=== PATIENT | female | born 1960 | race Hispanic/Latino ===

== ENCOUNTER 2017-08-09 15:06 | Observation (INO) | payer MEDICAID ==
[~2017-08-09] VITALS: Ht 121.9 cm; Wt 82.2 kg
[~2017-08-09 15:06] MED LIST: ALBU1.252 IH; AMOX-429 PO; BUDE10.2 IH; FLUO10CA21 PO; LEVO500T2 PO; LORA1TAB3 PO; MOME17N NASAL; NAPR-1023 PO; PRED20TA3 PO; RANI300T4 PO; TRAM-355 PO; UMEC62.5 IH
[2017-08-09 16:23] LABS: EOSINOPHILS % (AUTO) 2.3 % (0.0-8.0); HEMATOCRIT 38.3 % (36-48); LYMPHOCYTES % (AUTO) 26.2 % (21.0-51.0); MEAN CORPUSCULAR HEMOGLOBIN 21.7 pg (27.0-33.0); MEAN CORPUSCULAR HGB CONC 32.3 g/dL (32.0-36.0); MEAN CORPUSCULAR VOLUME 67.1 fL (79-99); MONOCYTES % (AUTO) 4.4 % (3.0-13.0); NEUTROPHILS % (AUTO) 66.1 % (40.0-77.0); PLATELET COUNT (AUTO) 303 K/uL (130-400); RED CELL DISTRIBUTION WIDTH 19.8 % (11.0-15.5); WHITE BLOOD COUNT (AUTO) 9.2 K/uL (4.8-10.8)
[2017-08-09 16:33] LABS: CARBON DIOXIDE 30 mmol/L (21-32); CHLORIDE 103 mmol/L (101-111); CREATININE 0.6 mg/dL (0.5-1.5); GLOMERULAR FILTR. RATE CALC 110 mL/min (>60); GLUCOSE,RANDOM 111 mg/dL (70-105); POTASSIUM 3.4 mmol/L (3.5-5.1); SODIUM SERUM 139 mmol/L (136-145); UREA NITROGEN, BLOOD 22 mg/dL (7-18)
[2017-08-09 16:35] LABS: APPEARANCE,URINE Clear (CLEAR); BILIRUBIN,URINE Negative (NEGATIVE); COLOR,URINE Yellow (YELLOW); GLUCOSE, URINE (UA) Negative (NEGATIVE); KETONES,URINE Negative (NEGATIVE); LEUKOCYTE ESTERASE ,URINE Negative (NEGATIVE); NITRATE,URINE Negative (NEGATIVE); OCCULT BLOOD,URINE Negative (NEGATIVE); PH,URINE 5.5 (5.0-8.0); PROTEIN,URINE Negative (NEGATIVE)
[2017-08-09 16:47] LABS: ALANINE AMINOTRANSFERASE 17 U/L (12-78); ALBUMIN 3.2 g/dL (3.5-5.0); ASPARTATE AMINOTRANSFERASE 16 U/L (10-37); BILIRUBIN,TOTAL 0.3 mg/dL (0.2-1.0); CREATINE KINASE MB < 0.5 ng/mL (0.5-3.6); CREATINE KINASE, TOTAL 44 U/L (21-232); TOTAL PROTEIN, SERUM 6.8 g/dL (6.0-8.3)
[2017-08-10] MEDS ORDERED: POTASSIUM CHLORIDE 20 MEQ ERTAB PO PRN (01:30)
[2017-08-10] MEDS ORDERED: GLUCAGON 1MG KIT 1 MG ML IM PRN (01:30)
[2017-08-10] MEDS ORDERED: LIDOCAINE HCL-MPF 1% 2ML VIAL IVP PRN (01:30)
[2017-08-10] MEDS ORDERED: GUAIFENESIN-DM 200/20 MG 10 ML PO PRN (01:30)
[2017-08-10] MEDS ORDERED: HYDRALAZINE HCL 20 MG/ML VIAL IV PRN (01:30)
[2017-08-10] MEDS ORDERED: NITROGLYCERIN 0.4 MG SL TAB SL PRN (01:30)
[2017-08-10] MEDS ORDERED: POTASSIUM CHLORIDE 20MEQ/100ML 100 ML IV PRN (01:30)
[2017-08-10] MEDS ORDERED: ONDANSETRON HCL 4 MG/2 ML VIAL IV PRN (01:30)
[2017-08-10] MEDS ORDERED: POTASSIUM CHLORIDE 10% ELIXIR 20 MEQ/15 ML UDCUP PO PRN (01:30)
[2017-08-10] MEDS ORDERED: ACETAMINOPHEN-CODEINE 300/30MG TAB PO PRN ×2 (01:30)
[2017-08-10] MEDS ORDERED: DiphenhydrAMINE HCL 50 MG/ML VIAL IV PRN (01:30)
[2017-08-10] MEDS ORDERED: LACTULOSE 20 GM/30 ML UDCUP PO PRN (01:30)
[2017-08-10] MEDS ORDERED: DEXTROSE 50%-WATER 50 ML DISP.SYRIN IV PRN (01:30)
[2017-08-10] MEDS ORDERED: LEVOFLOXACIN 500 MG/D5W 100 ML 100 ML ONE (02:17)
[2017-08-10 02:28] LABS: CREATINE KINASE MB < 0.5 ng/mL (0.5-3.6); CREATINE KINASE, TOTAL 73 U/L (21-232); MYOGLOBIN 30 ng/mL (10-92); TROPONIN I < 0.04 ng/mL (0.00-0.06)
[2017-08-10] MEDS ORDERED: LEVOFLOXACIN 500 MG/D5W 100 ML 100 ML IV SCH (02:30)
[2017-08-10 05:16] LABS: HEMATOCRIT 37.3 % (36-48); MEAN CORPUSCULAR HEMOGLOBIN 21.7 pg (27.0-33.0); MEAN CORPUSCULAR HGB CONC 32.3 g/dL (32.0-36.0); MEAN CORPUSCULAR VOLUME 67.2 fL (79-99); PLATELET COUNT (AUTO) 278 K/uL (130-400); RED BLOOD CELL COUNT(AUTO) 5.55 MIL/uL (4.00-5.50); RED CELL DISTRIBUTION WIDTH 19.9 % (11.0-15.5); WHITE BLOOD COUNT (AUTO) 6.6 K/uL (4.8-10.8)
[2017-08-10 05:43] LABS: CREATININE 0.5 mg/dL (0.5-1.5); POTASSIUM 3.6 mmol/L (3.5-5.1)
[2017-08-10] MEDS ORDERED: IPRATROPIUM/ALBUTEROL SULFATE 3 ML SOLUTION IH ONE ×4 (05:56→23:09)
[2017-08-10 05:58] LABS: CREATINE KINASE MB < 0.5 ng/mL (0.5-3.6); CREATINE KINASE, TOTAL 45 U/L (21-232); MYOGLOBIN 23 ng/mL (10-92); TROPONIN I < 0.04 ng/mL (0.00-0.06)
[2017-08-10] MEDS: IPRATROPIUM/ALBUTEROL SULFATE 3 ML SOLUTION IH SCH ×3 (06:00→18:00)
[2017-08-10] MEDS ORDERED: INSULIN HUMULIN R 100 UNIT/ML 3ML SQ SCH (07:30)
[2017-08-10] MEDS ORDERED: ASPIRIN 325 MG TABLET PO SCH (09:00)
[2017-08-10] MEDS ORDERED: METOPROLOL TARTRATE 25 MG TAB PO SCH (09:00)
[2017-08-10] MEDS ORDERED: FAMOTIDINE 20MG TAB 20 MG TAB PO SCH (09:00)
[2017-08-10] MEDS ORDERED: FAMOTIDINE 20MG TAB 20 MG TAB ONE (09:23)
[2017-08-10] MEDS ORDERED: ASPIRIN 325 MG TABLET ONE (09:23)
[2017-08-10] MEDS ORDERED: METOPROLOL TARTRATE 25 MG TAB ONE (09:23)
[2017-08-10] MEDS ORDERED: ACETAMINOPHEN-CODEINE 300/30MG TAB ONE (09:38)
[2017-08-10 10:11] LABS: CREATINE KINASE MB < 0.5 ng/mL (0.5-3.6); CREATINE KINASE, TOTAL 42 U/L (21-232); MYOGLOBIN 25 ng/mL (10-92); TROPONIN I < 0.04 ng/mL (0.00-0.06)
[2017-08-10] MEDS ORDERED: TRAMADOL /APAP 37.5MG/325MG TAB ONE ×2 (10:15→18:15)
[2017-08-10] MEDS ORDERED: TRAMADOL /APAP 37.5MG/325MG TAB PO PRN (10:45)
[2017-08-10] MEDS ORDERED: MAGNESIUM 2GM PREMIX 50ML 50 ML IV SCH (10:45)
[2017-08-10] MEDS ORDERED: MAGNESIUM 2GM PREMIX 50ML 50 ML IV ONE (11:07)
[2017-08-10] MEDS: BUDESONIDE 0.5 MG/2 ML INH IH SCH (18:00)
[2017-08-10 18:18] LABS: CREATINE KINASE MB < 0.5 ng/mL (0.5-3.6); CREATINE KINASE, TOTAL 59 U/L (21-232); MYOGLOBIN 21 ng/mL (10-92); TROPONIN I < 0.04 ng/mL (0.00-0.06)
[2017-08-10] MEDS ORDERED: ACYCLOVIR 200 MG CAPSULE PO SCH (19:00)
[2017-08-10] MEDS ORDERED: FAMOTIDINE/PF 20 MG/2 ML VIAL IV ONE (22:04)
[2017-08-11] MEDS ORDERED: LEVOFLOXACIN 500 MG/D5W 100 ML 100 ML ONE (02:31)
[2017-08-11] MEDS ORDERED: ONDANSETRON HCL 4 MG/2 ML VIAL ONE (04:21)
[2017-08-11 04:22] LABS: HEMATOCRIT 36.3 % (36-48); MEAN CORPUSCULAR HEMOGLOBIN 22.1 pg (27.0-33.0); MEAN CORPUSCULAR HGB CONC 32.9 g/dL (32.0-36.0); MEAN CORPUSCULAR VOLUME 67.2 fL (79-99); NUCLEATED RED BLOOD CELLS 0.1 % (0.0-0.19); PLATELET COUNT (AUTO) 285 K/uL (130-400); RED CELL DISTRIBUTION WIDTH 19.7 % (11.0-15.5)
[2017-08-11 04:31] LABS: CREATININE 0.5 mg/dL (0.5-1.5); POTASSIUM 3.4 mmol/L (3.5-5.1)
[2017-08-11] MEDS: BUDESONIDE 0.5 MG/2 ML INH IH SCH (06:00)
[2017-08-11] MEDS ORDERED: IPRATROPIUM 0.5 MG/2.5 ML INH IH ONE (06:57)
[2017-08-11] MEDS ORDERED: ALBUTEROL SULFATE 0.083% 2.5 MG/3 ML INH IH ONE (06:58)
[2017-08-11] MEDS: IPRATROPIUM/ALBUTEROL SULFATE 3 ML SOLUTION IH SCH ×3 (07:02→12:00)
[2017-08-11] MEDS ORDERED: ASPIRIN 325 MG TABLET ONE (08:42)
[2017-08-11] MEDS ORDERED: FAMOTIDINE 20MG TAB 20 MG TAB ONE (08:42)
[2017-08-11] MEDS ORDERED: LEVOFLOXACIN 500 MG/D5W 100 ML 100 ML IV SCH (09:00)
[2017-08-11] MEDS ORDERED: IPRATROPIUM/ALBUTEROL SULFATE 3 ML SOLUTION IH ONE (11:48)
[2017-08-11 14:50] VITALS: BP 128/69
[2017-08-11] MEDS ORDERED: CHOL500051 PO (15:03)
[2017-08-11] MEDS ORDERED: TIOT4MIS5 IH (15:03)
[2017-08-11 16:33] VITALS: BP 108/65
[2017-08-12] MEDS ORDERED: ENOXAPARIN SODIUM 40 MG/0.4 ML SYRINGE SQ SCH (09:00)
== END 2017-08-11 18:30 | disposition home or self-care (01) ==
LOC: EDH 15:06 → EDHIP 15:07 → 2AH 08-11 14:24
PROVIDERS: ADMIT Internal Medicine; ATTEND Internal Medicine
DX: R55 Syncope and collapse (principal); R07.89 Other chest pain; J44.1 Chronic obstructive pulmonary disease with (acute) exacerbation; G47.33 Obstructive sleep apnea (adult) (pediatric); Q78.0 Osteogenesis imperfecta; E78.00 Pure hypercholesterolemia, unspecified; H70.91 Unspecified mastoiditis, right ear; R20.0 Anesthesia of skin; M81.0 Age-related osteoporosis without current pathological fracture; Z77.22 Contact with and (suspected) exposure to environmental tobacco smoke (acute) (chronic)
CPT/HCPCS: 36415 ×3; 70450; 70544; 70547; 70551; 71045 ×2; 80048 ×2; 80053; 81003; 82550 ×5; 82553 ×5; 82948 ×5; 83735; 83874 ×4; 84443; 84484 ×5; 85025; 85027 ×2; 87088; 93005 ×4; 93306; 94640 ×7; 94664; 99285; G0378 ×51; J1956 ×2; J2405; J3475; J3490

== ENCOUNTER 2017-10-24 12:45 | Emergency (ER) | payer MEDICAID ==
[~2017-10-24 12:45] MED LIST changes: -AMOX-429 PO; +CHOL500051 PO; -LEVO500T2 PO; -PRED20TA3 PO; -RANI300T4 PO; +TIOT4MIS5 IH; -UMEC62.5 IH
== END 2017-10-24 14:20 | disposition home or self-care (01) ==
LOC: EDH 12:45
DX: S62.101A Fracture of unspecified carpal bone, right wrist, initial encounter for closed fracture (principal); Q78.0 Osteogenesis imperfecta; M81.0 Age-related osteoporosis without current pathological fracture; Z98.890 Other specified postprocedural states; W22.8XXA Striking against or struck by other objects, initial encounter; Y93.89 Activity, other specified; Y92.89 Other specified places as the place of occurrence of the external cause; Y99.8 Other external cause status
CPT/HCPCS: 29125; 73110

== ENCOUNTER 2017-12-02 12:52 | Emergency (ER) | payer MEDICAID ==
[2017-12-02] MEDS ORDERED: METHYLPREDNISOLONE SOD SUCC 125MG/2ML VIAL ONE (13:17)
[2017-12-02 13:24] LABS: BASOPHILS % (AUTO) 1.2 % (0.0-5.0); EOSINOPHILS % (AUTO) 2.8 % (0.0-8.0); HEMATOCRIT 39.8 % (36-48); LYMPHOCYTES % (AUTO) 24.9 % (21.0-51.0); MEAN CORPUSCULAR HEMOGLOBIN 21.7 pg (27.0-33.0); MEAN CORPUSCULAR HGB CONC 32.2 g/dL (32.0-36.0); MEAN CORPUSCULAR VOLUME 67.4 fL (79-99); MONOCYTES % (AUTO) 4.6 % (3.0-13.0); NEUTROPHILS % (AUTO) 66.5 % (40.0-77.0); NUCLEATED RED BLOOD CELLS 0.1 % (0.0-0.19); PLATELET COUNT (AUTO) 306 K/uL (130-400); RED CELL DISTRIBUTION WIDTH 19.5 % (11.0-15.5); WHITE BLOOD COUNT (AUTO) 10.1 K/uL (4.8-10.8)
[2017-12-02] MEDS ORDERED: IPRATROPIUM/ALBUTEROL SULFATE 3 ML SOLUTION IH ONE (13:24)
[2017-12-02 13:40] LABS: CREATININE 0.4 mg/dL (0.5-1.5); POTASSIUM 3.5 mmol/L (3.5-5.1)
[2017-12-02 13:45] LABS: ALBUMIN 3.4 g/dL (3.5-5.0); BILIRUBIN,TOTAL 0.3 mg/dL (0.2-1.0); TOTAL PROTEIN, SERUM 7.3 g/dL (6.0-8.3)
== END 2017-12-02 15:24 | disposition home or self-care (01) ==
LOC: EDH 12:52
DX: J44.1 Chronic obstructive pulmonary disease with (acute) exacerbation (principal); M81.0 Age-related osteoporosis without current pathological fracture
CPT/HCPCS: 36415; 71045; 80053; 84484; 85025; 87804 ×2; 93005; 94640; 96374; 99285; J2930

== ENCOUNTER 2018-02-02 15:54 | Emergency (ER) | payer MEDICAID ==
[2018-02-02] MEDS ORDERED: IPRATROPIUM/ALBUTEROL SULFATE 3 ML SOLUTION IH ONE (16:41)
[2018-02-02] MEDS ORDERED: TRAMADOL HCL 50 MG TABLET ONE (17:11)
== END 2018-02-02 19:25 | disposition home or self-care (01) ==
LOC: EDH 15:54
DX: M25.511 Pain in right shoulder (principal); J45.901 Unspecified asthma with (acute) exacerbation; Q78.0 Osteogenesis imperfecta; M81.0 Age-related osteoporosis without current pathological fracture; Z88.6 Allergy status to analgesic agent; Z98.890 Other specified postprocedural states
CPT/HCPCS: 71046; 73030; 94640

== ENCOUNTER 2018-05-14 17:48 | Emergency (ER) | payer MEDICAID ==
[2018-05-14 19:00] LABS: BASOPHILS % (AUTO) 0.8 % (0.0-5.0); EOSINOPHILS % (AUTO) 2.4 % (0.0-8.0); HEMATOCRIT 40.5 % (36-48); LYMPHOCYTES % (AUTO) 18.5 % (21.0-51.0); MEAN CORPUSCULAR HEMOGLOBIN 22.1 pg (27.0-33.0); MEAN CORPUSCULAR VOLUME 69.1 fL (79-99); MONOCYTES % (AUTO) 5.7 % (3.0-13.0); NEUTROPHILS % (AUTO) 72.6 % (40.0-77.0); PLATELET COUNT (AUTO) 260 K/uL (130-400); RED BLOOD CELL COUNT(AUTO) 5.85 MIL/uL (4.00-5.50); RED CELL DISTRIBUTION WIDTH 18.9 % (11.0-15.5); WHITE BLOOD COUNT (AUTO) 11.7 K/uL (4.8-10.8)
[2018-05-14 19:17] LABS: CREATININE 0.5 mg/dL (0.5-1.5); POTASSIUM 3.8 mmol/L (3.5-5.1)
[2018-05-14 19:21] LABS: ALBUMIN 3.5 g/dL (3.5-5.0); BILIRUBIN,TOTAL 0.2 mg/dL (0.2-1.0); TOTAL PROTEIN, SERUM 7.5 g/dL (6.0-8.3)
[2018-05-14] MEDS ORDERED: ONDANSETRON HCL 4 MG/2 ML VIAL ONE (19:24)
[2018-05-14] MEDS ORDERED: MORPHINE SULFATE 2 MG/ML 1ML SYG ONE (19:25)
[2018-05-14] MEDS ORDERED: HYOSCYAMINE SULFATE 0.125 MG TAB.SUBL SL ONE (19:25)
[2018-05-14 19:31] LABS: CREATINE KINASE, TOTAL 71 U/L (21-232); MYOGLOBIN 22 ng/mL (10-92); TROPONIN I < 0.04 ng/mL (0.00-0.06)
[2018-05-14] MEDS ORDERED: FAMOTIDINE/PF 20 MG/2 ML VIAL IV ONE (21:37)
[2018-05-14] MEDS ORDERED: MAGNESIUM HYDROXIDE 30 ML/UDCUP ONE (21:37)
[2018-05-14] MEDS ORDERED: LIDOCAINE HCL 2% VISCOUS 15 ML UDCUP ONE (21:37)
== END 2018-05-14 23:20 | disposition home or self-care (01) ==
LOC: EDH 17:48
DX: R10.13 Epigastric pain (principal); R11.0 Nausea; M81.0 Age-related osteoporosis without current pathological fracture; Z88.6 Allergy status to analgesic agent
CPT/HCPCS: 36415; 76705; 80053; 82550; 83690; 83874; 84484; 85025; 86677; 87804 ×2; 93005; 96365; 96375; 99285; J2405; J3490

== ENCOUNTER 2018-08-31 17:21 | Emergency (ER) | payer MEDICARE ==
[2018-08-31 18:27] LABS: BASOPHILS % (AUTO) 1.3 % (0.0-5.0); HEMATOCRIT 39.1 % (36-48); LYMPHOCYTES % (AUTO) 31.7 % (21.0-51.0); MEAN CORPUSCULAR HEMOGLOBIN 21.7 pg (27.0-33.0); MEAN CORPUSCULAR HGB CONC 31.3 g/dL (32.0-36.0); MEAN CORPUSCULAR VOLUME 69.4 fL (79-99); PLATELET COUNT (AUTO) 314 K/uL (130-400); RED BLOOD CELL COUNT(AUTO) 5.63 MIL/uL (4.00-5.50); RED CELL DISTRIBUTION WIDTH 18.8 % (11.0-15.5)
[2018-08-31 18:31] LABS: CARBON DIOXIDE 30 mmol/L (21-32); CHLORIDE 104 mmol/L (101-111); CREATININE 0.6 mg/dL (0.5-1.5); GLOMERULAR FILTR. RATE CALC 109 mL/min (>60); GLUCOSE,RANDOM 126 mg/dL (70-105); POTASSIUM 3.6 mmol/L (3.5-5.1); SODIUM SERUM 142 mmol/L (136-145); UREA NITROGEN, BLOOD 21 mg/dL (7-18)
[2018-08-31 18:37] LABS: ALANINE AMINOTRANSFERASE 13 U/L (12-78); ALBUMIN 3.3 g/dL (3.5-5.0); ASPARTATE AMINOTRANSFERASE 17 U/L (10-37); BILIRUBIN,DIRECT < 0.1 mg/dL (0.0-0.3); BILIRUBIN,TOTAL 0.2 mg/dL (0.2-1.0); LIPASE 79 U/L (114-286); TOTAL PROTEIN, SERUM 7.4 g/dL (6.0-8.3)
[2018-08-31 19:01] LABS: APPEARANCE,URINE Clear (CLEAR); BILIRUBIN,URINE Negative (NEGATIVE); COLOR,URINE Yellow (YELLOW); GLUCOSE, URINE (UA) Negative (NEGATIVE); KETONES,URINE Negative (NEGATIVE); LEUKOCYTE ESTERASE ,URINE Moderate (NEGATIVE); NITRATE,URINE Negative (NEGATIVE); OCCULT BLOOD,URINE Negative (NEGATIVE); PROTEIN,URINE Negative (NEGATIVE)
[2018-08-31 19:26] LABS: BACTERIA,URINE Few /HPF (None Seen); WBC,URINE 26-50 /HPF (0-1)
[2018-08-31 19:27] LABS: RBC,URINE 0-1 /HPF (0-1)
[2018-08-31] MEDS ORDERED: ALBUTEROL SULFATE 0.083% 2.5 MG/3 ML INH IH ONE (19:49)
== END 2018-08-31 20:18 | disposition home or self-care (01) ==
LOC: EDH 17:21
DX: J20.9 Acute bronchitis, unspecified (principal); N39.0 Urinary tract infection, site not specified; J44.9 Chronic obstructive pulmonary disease, unspecified; M81.0 Age-related osteoporosis without current pathological fracture; Z88.6 Allergy status to analgesic agent; Z98.890 Other specified postprocedural states
CPT/HCPCS: 36415; 71045; 71250; 80048; 80076; 81001; 83690; 85025; 87804; 93005; 94640

== ENCOUNTER 2018-10-15 14:37 | Observation (INO) | payer MEDICARE ==
[~2018-10-15] VITALS: Ht 121.9 cm; Wt 85.9 kg
[2018-10-15] MEDS ORDERED: ACETAMINOPHEN 325 MG TAB ONE (14:44)
[2018-10-15] MEDS ORDERED: ASPIRIN 325 MG TABLET ONE (14:47)
[2018-10-15 14:52] LABS: BASOPHILS % (AUTO) 1.4 % (0.0-5.0); HEMATOCRIT 39.1 % (36-48); LYMPHOCYTES % (AUTO) 20.7 % (21.0-51.0); MEAN CORPUSCULAR HEMOGLOBIN 22.5 pg (27.0-33.0); MEAN CORPUSCULAR HGB CONC 32.3 g/dL (32.0-36.0); MEAN CORPUSCULAR VOLUME 69.7 fL (79-99); MONOCYTES % (AUTO) 5.5 % (3.0-13.0); NEUTROPHILS % (AUTO) 69.4 % (40.0-77.0); PLATELET COUNT (AUTO) 331 K/uL (130-400); RED BLOOD CELL COUNT(AUTO) 5.61 MIL/uL (4.00-5.50); RED CELL DISTRIBUTION WIDTH 19.9 % (11.0-15.5); WHITE BLOOD COUNT (AUTO) 10.9 K/uL (4.8-10.8)
[2018-10-15 15:12] LABS: CREATININE 0.6 mg/dL (0.5-1.5); POTASSIUM 3.7 mmol/L (3.5-5.1)
[2018-10-15 15:15] LABS: INR 0.99 (0.85-1.15); PARTIAL THROMBOPLASTIN TIME 31.5 SEC (26.3-35.5); PROTHROMBIN TIME 10.4 SEC (9.6-11.6)
[2018-10-15 15:23] LABS: ALBUMIN 3.5 g/dL (3.5-5.0); BILIRUBIN,TOTAL 0.3 mg/dL (0.2-1.0); TOTAL PROTEIN, SERUM 7.2 g/dL (6.0-8.3)
[2018-10-15 15:25] LABS: B-TYPE NATRIURETIC PEPTIDE 11 pg/mL (0-100)
[2018-10-15] MEDS ORDERED: NITROGLYCERIN 1GM/1 INCH PACKET TD ONE (16:37)
[2018-10-15] MEDS ORDERED: ONDANSETRON HCL 4 MG/2 ML VIAL ONE (17:28)
[2018-10-15] MEDS ORDERED: MORPHINE SULFATE 2 MG/ML 1ML SYG ONE (17:28)
[2018-10-15] MEDS ORDERED: NITROGLYCERIN 0.4 MG SL TAB SL PRN (18:30)
[2018-10-15] MEDS ORDERED: ONDANSETRON HCL 4 MG/2 ML VIAL IV PRN (18:30)
[2018-10-15] MEDS ORDERED: MORPHINE SULFATE 2 MG/ML 1ML SYG IV PRN (18:30)
[2018-10-15] MEDS ORDERED: ACETAMINOPHEN 325 MG TAB PO PRN (18:30)
[2018-10-15 19:06] LABS: CHOLESTEROL 225 mg/dL (<200); HDL CHOLESTEROL 41 mg/dL (35-85); LDL DIRECT 161 mg/dL (0-99); TRIGLYCERIDES 190 mg/dL (30-200)
[2018-10-15] MEDS: IPRATROPIUM/ALBUTEROL SULFATE 3 ML SOLUTION IH PRN (19:51)
[2018-10-15 20:24] LABS: CREATINE KINASE, TOTAL 82 U/L (21-232); MYOGLOBIN 17 ng/mL (10-92); TROPONIN I < 0.04 ng/mL (0.00-0.06)
[2018-10-15] MEDS ORDERED: METOPROLOL TARTRATE 25 MG TAB PO SCH (21:00)
[2018-10-15] MEDS ORDERED: ATORVASTATIN CALCIUM 20 MG TABLET ONE (21:04)
[2018-10-15] MEDS ORDERED: METOPROLOL TARTRATE 25 MG TAB ONE (21:05)
[2018-10-15 23:30] VITALS: BP 116/63
[2018-10-15] MEDS: ATORVASTATIN CALCIUM 40 MG TABLET PO SCH (23:38)
[2018-10-16 02:29] LABS: CREATINE KINASE, TOTAL 63 U/L (21-232); MYOGLOBIN 20 ng/mL (10-92); TROPONIN I < 0.04 ng/mL (0.00-0.06)
[2018-10-16 04:00] VITALS: BP 102/59
[2018-10-16] MEDS ORDERED: ALBUTEROL SULFATE 0.042% 1.25 MG/3 ML INH IH PRN (04:30)
[2018-10-16] MEDS: IPRATROPIUM/ALBUTEROL SULFATE 3 ML SOLUTION IH PRN ×2 (06:21→18:49)
[2018-10-16 08:00] VITALS: BP_SYST 107; BP_SYST 117; BP_SYST 99; BP_DIAS 46; BP_DIAS 50; BP_DIAS 72
[2018-10-16 08:37] LABS: CREATINE KINASE, TOTAL 58 U/L (21-232); MYOGLOBIN 20 ng/mL (10-92); TROPONIN I < 0.04 ng/mL (0.00-0.06)
[2018-10-16] MEDS: CHOLECALCIFEROL 5000 UNIT PO SCH (09:00)
[2018-10-16] MEDS ORDERED: ASPIRIN 325 MG TABLET PO SCH (09:00)
[2018-10-16] MEDS ORDERED: NAPROXEN 500 MG TABLET PO SCH (09:00)
[2018-10-16] MEDS: LORAZEPAM 1 MG TABLET PO SCH (09:44)
[2018-10-16] MEDS: PANTOPRAZOLE SODIUM 40 MG TABLET.DR PO SCH (09:45)
[2018-10-16] MEDS: FLUOXETINE HCL 10 MG CAPSULE PO SCH (09:45)
[2018-10-16] MEDS: TRAMADOL /APAP 37.5MG/325MG TAB PO PRN ×2 (09:46→20:21)
[2018-10-16] MEDS: ENOXAPARIN SODIUM 30 MG/0.3 ML SQ SCH (09:47)
--- NOTE | 2018-10-16 10:29 | NUR ---
Reported pt c/o left ear tinnitus to Sanchez Forbes NP. Rec'd order to hold naproxen as this can be one of the side effects. Also, pt with orthostatic BP 99/50 when sitting up today, pulses in the 40's overnoc (as reported by DANYELLE Stevenson). Rec'd orders to decrease metoprolol to 12.5 po daily.
[2018-10-16] MEDS ORDERED: ALBUTEROL SULFATE 0.083% 2.5 MG/3 ML INH IH PRN (10:30)
[2018-10-16 12:00] VITALS: BP 117/55
[2018-10-16 16:00] VITALS: BP 136/70
[2018-10-16 19:48] VITALS: BP 135/61
[2018-10-16] MEDS: ATORVASTATIN CALCIUM 40 MG TABLET PO SCH (20:22)
[2018-10-16] MEDS ORDERED: METOPROLOL TARTRATE 25 MG TAB PO SCH ×2 (21:00)
[2018-10-16 23:43] VITALS: BP 122/59
[2018-10-17 03:40] VITALS: BP 115/63
[2018-10-17 04:08] LABS: HEMATOCRIT 34.5 % (36-48); MEAN CORPUSCULAR HEMOGLOBIN 22.4 pg (27.0-33.0); MEAN CORPUSCULAR HGB CONC 32.2 g/dL (32.0-36.0); MEAN CORPUSCULAR VOLUME 69.6 fL (79-99); PLATELET COUNT (AUTO) 289 K/uL (130-400); RED BLOOD CELL COUNT(AUTO) 4.96 MIL/uL (4.00-5.50); RED CELL DISTRIBUTION WIDTH 20.3 % (11.0-15.5); WHITE BLOOD COUNT (AUTO) 8.4 K/uL (4.8-10.8)
[2018-10-17 04:22] LABS: CREATININE 0.5 mg/dL (0.5-1.5)
[2018-10-17] MEDS: IPRATROPIUM/ALBUTEROL SULFATE 3 ML SOLUTION IH PRN (06:04)
[2018-10-17 08:00] VITALS: BP 110/53
--- NOTE | 2018-10-17 08:00 | NUR ---
Uses w/c to get around Addendum: 10/17/18 at 1144 by AMALIA MATSON RN RN Amended: Links added.
[2018-10-17] MEDS ORDERED: ASPIRIN 325 MG TABLET PO SCH (09:00)
[2018-10-17] MEDS: CHOLECALCIFEROL 5000 UNIT PO SCH (09:00)
[2018-10-17] MEDS: PANTOPRAZOLE SODIUM 40 MG TABLET.DR PO SCH (09:20)
[2018-10-17] MEDS: LORAZEPAM 1 MG TABLET PO SCH (09:20)
[2018-10-17] MEDS: FLUOXETINE HCL 10 MG CAPSULE PO SCH (09:20)
[2018-10-17] MEDS: ENOXAPARIN SODIUM 30 MG/0.3 ML SQ SCH (09:28)
[2018-10-17 11:00] VITALS: BP 131/62
[2018-10-17] MEDS: TRAMADOL /APAP 37.5MG/325MG TAB PO PRN (14:55)
== END 2018-10-17 17:00 | disposition home or self-care (01) ==
LOC: EDH 14:37 → EDHIP 18:27 → 4BH 23:08
PROVIDERS: ADMIT Internal Medicine; ATTEND Internal Medicine
DX: R07.89 Other chest pain (principal); E66.01 Morbid (severe) obesity due to excess calories; G47.30 Sleep apnea, unspecified; G89.4 Chronic pain syndrome; I10 Essential (primary) hypertension; I72.2 Aneurysm of renal artery; J44.9 Chronic obstructive pulmonary disease, unspecified; K57.30 Diverticulosis of large intestine without perforation or abscess without bleeding; M81.0 Age-related osteoporosis without current pathological fracture; M94.0 Chondrocostal junction syndrome [Tietze]; Q78.0 Osteogenesis imperfecta; Z68.43 Body mass index [BMI] 50.0-59.9, adult; Z82.0 Family history of epilepsy and other diseases of the nervous system; Z82.5 Family history of asthma and other chronic lower respiratory diseases; Z82.62 Family history of osteoporosis; Z98.51 Tubal ligation status; Z79.899 Other long term (current) drug therapy
CPT/HCPCS: 36415 ×3; 71045; 74176; 80048; 80053; 80061; 82550 ×4; 83036; 83874 ×4; 83880; 84484 ×5; 85025; 85027; 85610; 85730; 93005 ×2; 93306; 94640 ×4; 94664; 96372 ×2; 99284; G0378 ×47; J1650 ×2; J2405

== ENCOUNTER 2019-06-16 12:49 | Emergency (ER) | payer MEDICARE ==
[~2019-06-16 12:49] MED LIST changes: -MOME17N NASAL; -NAPR-1023 PO; -TIOT4MIS5 IH; -TRAM-355 PO
[2019-06-16 14:11] LABS: ALBUMIN 3.6 g/dL (3.5-5.0); BILIRUBIN,TOTAL 0.3 mg/dL (0.2-1.0); CREATININE 0.5 mg/dL (0.5-1.5); POTASSIUM 3.5 mmol/L (3.5-5.1); TOTAL PROTEIN, SERUM 7.7 g/dL (6.0-8.3)
[2019-06-16] MEDS ORDERED: ONDANSETRON HCL 4 MG/2 ML VIAL ONE (14:15)
[2019-06-16] MEDS ORDERED: SODIUM CHLORIDE 0.9% 500ML 500 ML IV ONE (14:16)
[2019-06-16 14:20] LABS: BASOPHILS % (AUTO) 0.6 % (0.0-5.0); EOSINOPHILS % (AUTO) 2.9 % (0.0-8.0); HEMATOCRIT 40.1 % (36-48); LYMPHOCYTES % (AUTO) 31.4 % (21.0-51.0); MEAN CORPUSCULAR HEMOGLOBIN 22.6 pg (27.0-33.0); MEAN CORPUSCULAR HGB CONC 32.3 g/dL (32.0-36.0); MEAN CORPUSCULAR VOLUME 70.1 fL (79-99); MONOCYTES % (AUTO) 8.1 % (3.0-13.0); NUCLEATED RED BLOOD CELLS 0.1 % (0.0-0.19); PLATELET COUNT (AUTO) 287 K/uL (130-400); RED BLOOD CELL COUNT(AUTO) 5.73 MIL/uL (4.00-5.50); WHITE BLOOD COUNT (AUTO) 8.5 K/uL (4.8-10.8)
[2019-06-16] MEDS ORDERED: IPRATROPIUM/ALBUTEROL SULFATE 3 ML SOLUTION IH ONE (14:26)
[2019-06-16 14:27] LABS: INR 0.98 (0.85-1.15); PARTIAL THROMBOPLASTIN TIME 29.6 SEC (26.3-35.5); PROTHROMBIN TIME 10.3 SEC (9.6-11.6)
[2019-06-16 14:49] LABS: B-TYPE NATRIURETIC PEPTIDE 13 pg/mL (0-100)
[2019-06-16 15:09] LABS: RAPID GROUP A STREP NEGATIVE (NEGATIVE)
[2019-06-16] MEDS ORDERED: IOHEXOL-350 75 ML VIAL IV ONE (16:32)
== END 2019-06-16 17:42 | disposition home or self-care (01) ==
LOC: EDH 12:49
DX: Q78.0 Osteogenesis imperfecta (principal); J44.9 Chronic obstructive pulmonary disease, unspecified; M81.0 Age-related osteoporosis without current pathological fracture
CPT/HCPCS: 36415; 70450; 71045; 71275; 80053; 82550; 83880; 84484 ×2; 85025; 85610; 85730; 87804 ×2; 87880; 93005 ×2; 94640; 96374; 99285; J2405; J7040; Q9967

== ENCOUNTER 2019-09-19 18:16 | Emergency (ER) | payer MEDICARE ==
[~2019-09-19 18:16] MED LIST changes: -FLUO10CA21 PO; +FLUO10CA22 PO; +OLME1TAB82 PO; +PANT40TA PO; +TRAM-355 PO
[2019-09-19 19:26] LABS: BASOPHILS % (AUTO) 0.9 % (0.0-5.0); EOSINOPHILS % (AUTO) 2.3 % (0.0-8.0); LYMPHOCYTES % (AUTO) 31.3 % (21.0-51.0); MEAN CORPUSCULAR HEMOGLOBIN 21.8 pg (27.0-33.0); MEAN CORPUSCULAR HGB CONC 30.8 g/dL (32.0-36.0); MEAN CORPUSCULAR VOLUME 70.8 fL (79-99); MONOCYTES % (AUTO) 7.1 % (3.0-13.0); NEUTROPHILS % (AUTO) 58.1 % (40.0-77.0); PLATELET COUNT (AUTO) 291 K/uL (130-400); RED BLOOD CELL COUNT(AUTO) 5.51 MIL/uL (4.00-5.50); RED CELL DISTRIBUTION WIDTH 19.8 % (11.0-15.5); WHITE BLOOD COUNT (AUTO) 9.1 K/uL (4.8-10.8)
[2019-09-19 19:41] LABS: CREATININE 0.6 mg/dL (0.5-1.5); POTASSIUM 3.5 mmol/L (3.5-5.1)
[2019-09-19 19:46] LABS: ALBUMIN 3.3 g/dL (3.5-5.0); BILIRUBIN,TOTAL 0.1 mg/dL (0.2-1.0); TOTAL PROTEIN, SERUM 7.4 g/dL (6.0-8.3)
[2019-09-19 20:52] LABS: APPEARANCE,URINE Clear (CLEAR); BILIRUBIN,URINE Negative (NEGATIVE); COLOR,URINE Yellow (YELLOW); GLUCOSE, URINE (UA) Negative (NEGATIVE); KETONES,URINE Negative (NEGATIVE); LEUKOCYTE ESTERASE ,URINE Trace (NEGATIVE); NITRATE,URINE Negative (NEGATIVE); OCCULT BLOOD,URINE Negative (NEGATIVE); PROTEIN,URINE Negative (NEGATIVE); UROBILINOGEN,URINE 0.2 mg/dL (0.2-1.0)
[2019-09-19 21:16] LABS: BACTERIA,URINE Moderate /HPF (None Seen); RBC,URINE 0-1 /HPF (0-1); SQUAMOUS EPITHELIAL CELL,UR 0-2 /HPF (0-2)
== END 2019-09-19 22:49 | disposition home or self-care (01) ==
LOC: EDH 18:16
DX: J06.9 Acute upper respiratory infection, unspecified (principal); R07.89 Other chest pain; Q78.0 Osteogenesis imperfecta; J44.9 Chronic obstructive pulmonary disease, unspecified; Z98.890 Other specified postprocedural states
CPT/HCPCS: 36415; 71101; 80053; 81001; 85025; 87804

== ENCOUNTER 2020-06-23 09:37 | Observation (INO) | payer MEDICARE ==
[~2020-06-23] VITALS: Ht 121.9 cm; Wt 83.2 kg
[~2020-06-23 09:37] MED LIST changes: -FLUO10CA22 PO; +FLUO10CA23 PO; +OLME-7 PO; -OLME1TAB82 PO
[2020-06-23] MEDS ORDERED: ASPIRIN 325 MG TABLET ONE (09:44)
[2020-06-23 09:57] LABS: BASOPHILS % (AUTO) 0.9 % (0.0-5.0); EOSINOPHILS % (AUTO) 2.4 % (0.0-8.0); LYMPHOCYTES % (AUTO) 33.8 % (21.0-51.0); MEAN CORPUSCULAR HEMOGLOBIN 23.4 pg (27.0-33.0); MEAN CORPUSCULAR HGB CONC 31.6 g/dL (32.0-36.0); MEAN CORPUSCULAR VOLUME 73.9 fL (79-99); MONOCYTES % (AUTO) 6.5 % (3.0-13.0); NEUTROPHILS % (AUTO) 55.5 % (40.0-77.0); PLATELET COUNT (AUTO) 357 K/uL (130-400); RED BLOOD CELL COUNT(AUTO) 5.95 MIL/uL (4.00-5.50); RED CELL DISTRIBUTION WIDTH 20.4 % (11.0-15.5)
[2020-06-23 10:08] LABS: CREATININE 0.6 mg/dL (0.5-1.5); POTASSIUM 3.5 mmol/L (3.5-5.1)
[2020-06-23 10:13] LABS: ALBUMIN 3.3 g/dL (3.5-5.0); BILIRUBIN,TOTAL 0.3 mg/dL (0.2-1.0); TOTAL PROTEIN, SERUM 7.4 g/dL (6.0-8.3)
[2020-06-23 10:39] LABS: INR 0.98 (0.85-1.15); PARTIAL THROMBOPLASTIN TIME 29.2 SEC (26.3-35.5); PROTHROMBIN TIME 10.6 SEC (9.6-11.6)
[2020-06-23 12:25] LABS: APPEARANCE,URINE Clear (CLEAR); BILIRUBIN,URINE Negative (NEGATIVE); COLOR,URINE Yellow (YELLOW); GLUCOSE, URINE (UA) Negative (NEGATIVE); KETONES,URINE Negative (NEGATIVE); LEUKOCYTE ESTERASE ,URINE Trace (NEGATIVE); NITRATE,URINE Negative (NEGATIVE); OCCULT BLOOD,URINE Negative (NEGATIVE); PH,URINE 5.5 (5.0-8.0); PROTEIN,URINE Negative (NEGATIVE); UROBILINOGEN,URINE 0.2 mg/dL (0.2-1.0)
[2020-06-23 12:55] LABS: BACTERIA,URINE Rare /HPF (None Seen); RBC,URINE 0-1 /HPF (0-1); SQUAMOUS EPITHELIAL CELL,UR Rare /HPF (0-2)
[2020-06-23] MEDS ORDERED: ONDANSETRON HCL 4 MG/2 ML VIAL ONE (13:32)
[2020-06-23] MEDS ORDERED: NITROGLYCERIN 1GM/1 INCH PACKET TD ONE (13:32)
[2020-06-23] MEDS ORDERED: MORPHINE SULFATE 2 MG/ML 1ML SYG ONE (13:33)
[2020-06-23] MEDS ORDERED: ACETAMINOPHEN 325 MG TAB PO PRN (14:30)
[2020-06-23] MEDS: CEFTRIAXONE SODIUM 1 GM IVP SCH (14:30)
[2020-06-23] MEDS ORDERED: CEFTRIAXONE SODIUM 1 GM ONE (15:01)
[2020-06-23 15:41] LABS: CREATINE KINASE, TOTAL 32 U/L (21-232); MYOGLOBIN 19 ng/mL (10-92); TROPONIN I < 0.04 ng/mL (0.00-0.06)
[2020-06-23 18:49] VITALS: BP 114/53
[2020-06-23] MEDS: ATORVASTATIN CALCIUM 20 MG TABLET PO SCH (19:41)
[2020-06-23] MEDS: FAMOTIDINE 20MG TAB 20 MG TAB PO SCH (19:41)
[2020-06-23 20:00] VITALS: BP 95/44
[2020-06-23] MEDS: METOPROLOL TARTRATE 25 MG TAB PO SCH (20:28)
[2020-06-23] MEDS: MORPHINE SULFATE 2 MG/ML 1ML SYG IV PRN (21:22)
[2020-06-23 23:17] LABS: CREATINE KINASE, TOTAL 31 U/L (21-232); MYOGLOBIN 16 ng/mL (10-92); TROPONIN I < 0.04 ng/mL (0.00-0.06)
[2020-06-23 23:42] VITALS: BP 110/58
[2020-06-24 03:43] VITALS: BP 110/58
[2020-06-24 05:47] LABS: BASOPHILS % (AUTO) 0.9 % (0.0-5.0); EOSINOPHILS % (AUTO) 2.5 % (0.0-8.0); HEMATOCRIT 41.9 % (36-48); LYMPHOCYTES % (AUTO) 30.6 % (21.0-51.0); MEAN CORPUSCULAR HEMOGLOBIN 23.2 pg (27.0-33.0); MEAN CORPUSCULAR HGB CONC 30.8 g/dL (32.0-36.0); MEAN CORPUSCULAR VOLUME 75.5 fL (79-99); MONOCYTES % (AUTO) 6.5 % (3.0-13.0); NEUTROPHILS % (AUTO) 58.8 % (40.0-77.0); PLATELET COUNT (AUTO) 327 K/uL (130-400); RED BLOOD CELL COUNT(AUTO) 5.55 MIL/uL (4.00-5.50); RED CELL DISTRIBUTION WIDTH 20.5 % (11.0-15.5); WHITE BLOOD COUNT (AUTO) 10.1 K/uL (4.8-10.8)
[2020-06-24 05:52] LABS: HEMOGLOBIN A1C 6.3 % (4.0-6.0)
[2020-06-24 06:05] LABS: BILIRUBIN,TOTAL 0.2 mg/dL (0.2-1.0); CREATININE 0.6 mg/dL (0.5-1.5); POTASSIUM 4.2 mmol/L (3.5-5.1); THYROID STIMULATING HORMONE 1.26 uIU/mL (0.36-3.74); TOTAL PROTEIN, SERUM 6.6 g/dL (6.0-8.3)
[2020-06-24 06:36] LABS: CREATINE KINASE, TOTAL 30 U/L (21-232); MYOGLOBIN 21 ng/mL (10-92); TROPONIN I < 0.04 ng/mL (0.00-0.06)
[2020-06-24 08:00] VITALS: BP 117/59
[2020-06-24] MEDS: FAMOTIDINE 20MG TAB 20 MG TAB PO SCH ×2 (08:42→21:06)
[2020-06-24] MEDS: ASPIRIN 81MG TAB.CHEW PO SCH (08:42)
[2020-06-24] MEDS: ENOXAPARIN SODIUM 30 MG/0.3 ML SQ SCH (08:42)
[2020-06-24] MEDS: MORPHINE SULFATE 2 MG/ML 1ML SYG IV PRN ×2 (08:43→13:40)
[2020-06-24] MEDS: PANTOPRAZOLE SODIUM 40 MG TABLET.DR PO SCH ×2 (08:54→16:53)
[2020-06-24] MEDS ORDERED: ALBUTEROL SULFATE 0.042% 1.25 MG/3 ML INH IH PRN (09:00)
[2020-06-24] MEDS: METOPROLOL TARTRATE 25 MG TAB PO SCH ×2 (09:00→21:06)
--- NOTE | 2020-06-24 11:00 | NUR ---
MET W PATIENT AT BEDSIDE FOR DC PLANNING PATIENT KNOWN TO THIS CM FORM LAST ADMIT, LIVES WITH SON WHO IS ALSO WHEELCHAIR BOUND; THEY SHARE PROVIDER, YAW, WHO CAN TRANSPORT, BUT MAY ALSO BE HER BROTHER ROGERIO ON FACE SHEET. STATES THAT SHE AND HER SON USED TO LIVE WITH HER PARENTS, BUT BOTH THIS SPRING. STATES HOME IS EQUIPPED AND SAFE, SHE HAS W/CHAIR, SHOWER CHAIR, RAMP, OXGYEN, NEBULIZER, INHALER, NO SLEEP STUDY BUT IT IS PENDING WITH MYLES RODRÍGUEZ, STATES SEES YANNI EMRCADO ABOUT EVERY MONTH AND DCP WILL BE TO HOME. CAN GET EASILY IN AND OUT OF A VEHICLE WITH ASSISTANCE. CM TO FOLLOW Addendum: 06/24/20 at 1813 by CARLOS ALBERTO VELASCO RN CM Amended: Links added.
[2020-06-24 11:40] VITALS: BP 123/61
[2020-06-24] MEDS: FLUTICASONE/VILANTEROL 1 EACH BLST.W.DEV IH SCH (13:38)
[2020-06-24] MEDS: CEFTRIAXONE SODIUM 1 GM IVP SCH (13:38)
[2020-06-24] MEDS: FLUOXETINE HCL 10 MG CAPSULE PO SCH (13:38)
[2020-06-24 15:55] VITALS: BP 126/64
[2020-06-24] MEDS ORDERED: IOHEXOL-350 75 ML VIAL IV ONE (15:56)
[2020-06-24 19:31] VITALS: BP 133/76
[2020-06-24] MEDS: ATORVASTATIN CALCIUM 20 MG TABLET PO SCH (21:06)
[2020-06-24] MEDS: FUROSEMIDE 10 MG/ML 2ML VIAL IV SCH (21:07)
[2020-06-24 23:48] VITALS: BP 143/58
[2020-06-25 04:00] VITALS: BP 130/62
[2020-06-25 05:33] LABS: BASOPHILS % (AUTO) 0.8 % (0.0-5.0); EOSINOPHILS % (AUTO) 1.8 % (0.0-8.0); HEMATOCRIT 42.3 % (36-48); LYMPHOCYTES % (AUTO) 22.7 % (21.0-51.0); MEAN CORPUSCULAR HEMOGLOBIN 23.5 pg (27.0-33.0); MEAN CORPUSCULAR HGB CONC 31.4 g/dL (32.0-36.0); MEAN CORPUSCULAR VOLUME 74.6 fL (79-99); MONOCYTES % (AUTO) 7.6 % (3.0-13.0); NEUTROPHILS % (AUTO) 66.5 % (40.0-77.0); PLATELET COUNT (AUTO) 323 K/uL (130-400); RED BLOOD CELL COUNT(AUTO) 5.67 MIL/uL (4.00-5.50); RED CELL DISTRIBUTION WIDTH 20.2 % (11.0-15.5); WHITE BLOOD COUNT (AUTO) 10.3 K/uL (4.8-10.8)
[2020-06-25 05:50] LABS: CREATININE 0.6 mg/dL (0.5-1.5); POTASSIUM 3.6 mmol/L (3.5-5.1)
[2020-06-25] MEDS: PANTOPRAZOLE SODIUM 40 MG TABLET.DR PO SCH (07:18)
[2020-06-25 08:00] VITALS: BP 133/53
[2020-06-25] MEDS: FLUOXETINE HCL 10 MG CAPSULE PO SCH (08:04)
[2020-06-25] MEDS: FAMOTIDINE 20MG TAB 20 MG TAB PO SCH (08:04)
[2020-06-25] MEDS: ASPIRIN 81MG TAB.CHEW PO SCH (08:04)
[2020-06-25] MEDS: FUROSEMIDE 10 MG/ML 2ML VIAL IV SCH ×2 (08:04→08:07)
[2020-06-25] MEDS: ENOXAPARIN SODIUM 30 MG/0.3 ML SQ SCH (08:05)
[2020-06-25] MEDS: FLUTICASONE/VILANTEROL 1 EACH BLST.W.DEV IH SCH (08:06)
[2020-06-25] MEDS: METOPROLOL TARTRATE 25 MG TAB PO SCH (08:08)
[2020-06-25] MEDS ORDERED: POTASSIUM CHLORIDE 20 MEQ ERTAB PO SCH (09:15)
[2020-06-25 12:00] VITALS: BP 120/68
[2020-06-25] MEDS: CEFTRIAXONE SODIUM 1 GM IVP SCH (14:46)
--- NOTE | 2020-06-25 15:30 | NUR ---
RECEIVED REPORT FROM VERNELL PATEL PLAN FOR DC HOME THIS AFTERNOON
--- NOTE | 2020-06-25 15:41 | NUR ---
DISCHARGE DC INSTRUCTIONS GIVEN TO PATIENT, VERBALIZES UNDERSTANDING. PIV REMOVED CATH TIP INTACT TELE PACK REMOVED. ALL QUESTIONS ANSWERED ALL BELONGINGS GATHERED. AWAITING RIDE.
== END 2020-06-25 16:00 | disposition home or self-care (01) ==
LOC: EDH 09:37 → EDHIP 14:24 → 4AH 18:25
PROVIDERS: ADMIT Hospitalist; ATTEND Hospitalist
DX: R07.89 Other chest pain (principal); Z20.828 Contact with and (suspected) exposure to other viral communicable diseases; J44.9 Chronic obstructive pulmonary disease, unspecified; Q78.0 Osteogenesis imperfecta; M85.89 Other specified disorders of bone density and structure, multiple sites; G47.33 Obstructive sleep apnea (adult) (pediatric); I72.2 Aneurysm of renal artery; E66.01 Morbid (severe) obesity due to excess calories; M81.0 Age-related osteoporosis without current pathological fracture; E66.2 Morbid (severe) obesity with alveolar hypoventilation; E78.5 Hyperlipidemia, unspecified; F41.9 Anxiety disorder, unspecified; Z99.81 Dependence on supplemental oxygen; Z79.51 Long term (current) use of inhaled steroids; Z79.899 Other long term (current) drug therapy; Z68.43 Body mass index [BMI] 50.0-59.9, adult
CPT/HCPCS: 36415 ×3; 71045; 71275; 80048; 80053 ×2; 80061; 81001; 82550 ×4; 83036; 83874 ×3; 83880; 84145; 84443; 84484 ×4; 85025 ×3; 85378; 85610; 85730; 87426; 93005 ×3; 93306; 93356; 93970; 94664; 96372 ×2; 96374; 96375; 96376 ×2; 99285; G0378 ×49; J0696 ×3; J1650 ×2; J1940 ×2; J2405; Q9967

== ENCOUNTER 2022-05-06 17:46 | Emergency (ER) | payer MEDICARE ==
[~2022-05-06] VITALS: Ht 121.9 cm; Wt 79.4 kg
[~2022-05-06 17:46] MED LIST changes: -FLUO10CA23 PO; +FLUO10CA24 PO
[2022-05-06 17:54] VITALS: BP 183/86
[2022-05-06] MEDS ORDERED: TRAMADOL HCL 50 MG TABLET PO ONE (18:30)
[2022-05-06] MEDS ORDERED: ACETAMINOPHEN 500 MG TABLET PO ONE (18:30)
[2022-05-06] MEDS ORDERED: ACET-2247 PO (18:43)
== END 2022-05-06 19:21 | disposition home or self-care (01) ==
LOC: EDH 17:46
DX: M25.551 Pain in right hip (principal); M25.552 Pain in left hip; Z79.899 Other long term (current) drug therapy
CPT/HCPCS: 73522

== ENCOUNTER 2023-07-27 13:32 | Emergency (ER) | payer MEDICARE ==
[~2023-07-27] VITALS: Ht 121.9 cm; Wt 81.6 kg
[~2023-07-27 13:32] MED LIST changes: +ACET-2247 PO
[2023-07-27 13:56] LABS: BASOPHILS # (AUTO) 0.09 K/uL (0.00-0.20); EOSINOPHILS # (AUTO) 0.22 K/uL (0.00-0.70); EOSINOPHILS % (AUTO) 2.4 % (0.0-8.0); HEMATOCRIT 40.3 % (36-48); IMMATURE GRANULOCYTE ABSOLUTE 0.06 K/uL (0-1); LYMPHOCYTES # (AUTO) 2.4 K/uL (1.0-4.8); LYMPHOCYTES % (AUTO) 26.2 % (21.0-51.0); MEAN CORPUSCULAR HEMOGLOBIN 23.3 pg (27.0-33.0); MEAN CORPUSCULAR HGB CONC 31.8 g/dL (32.0-36.0); MEAN CORPUSCULAR VOLUME 73.3 fL (79-99); MONOCYTES # (AUTO) 0.6 K/uL (0.1-1.0); MONOCYTES % (AUTO) 6.5 % (3.0-13.0); NEUTROPHILS # (AUTO) 5.7 K/uL (1.8-7.7); NEUTROPHILS % (AUTO) 63.2 % (40.0-77.0); PLATELET COUNT (AUTO) 328 K/uL (130-400); RED CELL DISTRIBUTION WIDTH 18.4 % (11.0-15.5)
[2023-07-27 13:58] LABS: ADD UA MICROSCOPIC YES; APPEARANCE,URINE CLEAR (CLEAR); BILIRUBIN,URINE NEGATIVE (NEGATIVE); COLOR,URINE LIGHT-YELLOW (YELLOW); GLUCOSE, URINE (UA) NEGATIVE (NEGATIVE); KETONES,URINE NEGATIVE (NEGATIVE); LEUKOCYTE ESTERASE ,URINE NEGATIVE Leu/uL (NEGATIVE); NITRATE,URINE NEGATIVE (NEGATIVE); PH,URINE 7.5 (5.0-8.0); PROTEIN,URINE NEGATIVE (NEGATIVE); UROBILINOGEN,URINE 0.2 mg/dL (0.2-1.0)
[2023-07-27 13:59] LABS: MUCUS,URINE RARE LPF (None Seen); SQUAMOUS EPITHELIAL CELL,UR RARE /HPF (0-2); WBC,URINE 0-1 /HPF (0-1)
[2023-07-27 14:04] LABS: CREATININE 0.5 mg/dL (0.5-1.5)
[2023-07-27 14:09] LABS: ALBUMIN 3.7 g/dL (3.5-5.0); BILIRUBIN,TOTAL 0.4 mg/dL (0.2-1.0); TOTAL PROTEIN, SERUM 7.2 g/dL (6.0-8.3)
[2023-07-27] MEDS ORDERED: ONDANSETRON 4MG INJ IVP ONE (15:00)
[2023-07-27] MEDS ORDERED: FAMOTIDINE 20MG VIAL IV ONE (15:00)
[2023-07-27] MEDS ORDERED: PANTOPRAZOLE 40 MG/VIAL IVP ONE (15:00)
[2023-07-27] MEDS ORDERED: FAMO-136 PO (17:17)
[2023-07-27] MEDS ORDERED: PANT40TA55 PO (17:17)
[2023-07-27 17:26] VITALS: BP 127/53; PULSE 74; RESP 16; O2SAT 97
== END 2023-07-27 17:29 | disposition home or self-care (01) ==
LOC: EDH 13:32
DX: K29.70 Gastritis, unspecified, without bleeding (principal); K21.00 Gastro-esophageal reflux disease with esophagitis, without bleeding; Q78.0 Osteogenesis imperfecta; J45.909 Unspecified asthma, uncomplicated
CPT/HCPCS: 99285; 74176; 96374; 96375; 84484; 80053; 83690; 85025; 81001; 36415; J3490; J2405; C9113

== ENCOUNTER 2023-11-24 09:25 | Emergency (ER) | payer MEDICARE ==
[~2023-11-24] VITALS: Ht 121.9 cm; Wt 78.0 kg
[~2023-11-24 09:25] MED LIST changes: +FAMO-136 PO; +PANT40TA55 PO
[2023-11-24 11:00] VITALS: BP 152/74; PULSE 65; RESP 18; O2SAT 98
[2023-11-24] MEDS ORDERED: MOXIOS OD (11:39)
== END 2023-11-24 12:17 | disposition home or self-care (01) ==
LOC: EDH 09:25
DX: H10.89 Other conjunctivitis (principal); Z79.899 Other long term (current) drug therapy